=== PATIENT | male | born 1955 | race Caucasian/White ===

== ENCOUNTER 2019-04-13 13:35 | Inpatient (IN) ==
[2019-04-13 14:01] LABS: Hematocrit 43.6 % (37.5-50.1); Hemoglobin 13.5 g/dL (12.9-16.9); Mean Corpuscular Hemoglobin 29.5 pg (28.0-33.3); Mean Corpuscular Volume 95.2 fL (83.0-100.0); Mean Platelet Volume 9.5 fL (9.4-12.4); Platelet Count 235 K/mcL (140-400); Red Blood Count 4.58 M/mcL (4.19-5.50); Red Cell Distribution Width 14.4 % (11.5-14.5); White Blood Count 7.1 K/mcL (4.3-11.1)
[2019-04-13 14:13] LABS: Prothrombin Time 11.1 Seconds (9.4-12.1)
[2019-04-13 14:20] LABS: Troponin I < 0.03 ng/mL (< 0.04)
[2019-04-13 14:58] LABS: BUN/Creatinine Ratio 11 (6-26); Blood Urea Nitrogen 17 mg/dL (8-23); Calcium 9.1 mg/dL (8.6-10.3); Carbon Dioxide 29 mEq/L (23-29); Chloride 103 mEq/L (98-107); Ethanol < 10 mg/dL (Less than 10); Glucose 116 mg/dL (70-105); Osmolality,Calculated 291 (280-300); Potassium 4.4 mEq/L (3.5-5.1); Sodium 139 mEq/L (136-145); eGFR For African Americans 57 (> 60); eGFR For Non-African Americans 47 (> 60)
--- NOTE | 2019-04-13 15:41 | Emergency Department Note ---
Disposition Clinical Impression: CVA (cerebral vascular accident) Disposition: Admitted As Inpatient Condition: Good Referrals: Alexander Carrion MD [Primary Care Provider] - Time of Disposition: 15:43 General Adult HPI - General Chief complaint: ED Neuro Symptoms/Deficit Stated complaint: intermittent slurred speech Time Seen by Provider: 04/13/19 13:39 Source: patient, EMS Limitations: no limitations - History of Present Illness HPI Narrative: Is a 64-year-old gentleman who presents to the emergency department with chief complaint of strokelike symptoms. The patient reports last night he was eating dinner dropped his plate and started choking on his food. The patient's says that he became unresponsive briefly but then woke up and spit out the food out of his mouth. Patient had some difficulty talking at that time that resolved by the time he went to sleep. The patient woke up this morning and then when he went to breakfast approximately 10 AM his friend noticed that his speech was garbled and the patient was having difficulty time getting words out talking. The patient also noticed that he was drooling out of the right side of his mouth when this occurred. EMS was called and the patient was transported to the emergency department. Upon arrival to the emergency department the patient states that his symptoms were rapidly improving. The patient states that the droopiness. He has full range of motion in his extremities and states that his speech is almost back to his baseline. Pain Scale: 0 - Related Data Home Medications Medication Instructions Recorded Confirmed Aspirin 81 mg PO DAILY 04/19/17 12/21/18 Atorvastatin Calcium [Lipitor] 20 mg PO DAILY 04/19/17 12/21/18 FLUoxetine HCl [Prozac] 40 mg PO DAILY 04/19/17 12/21/18 HYDROcodone/Acet 5/325 mg [[place] 1 tab PO BID PRN 04/19/17 12/21/18 5-325 mg] Metoprolol [Lopressor] 50 mg PO BID 04/19/17 12/21/18 Pantoprazole Sodium [Protonix] 40 mg PO DAILY 12/21/18 12/21/18 hydrOXYzine HCl [Hydroxyzine HCl] 25 mg PO Q8H PRN 12/21/18 12/21/18 Allergies Allergy/AdvReac Type Severity Reaction Status Date / Time No Known Allergies Allergy Verified 02/12/19 09:50 All systems ED: reviewed and negative except as stated. Past Medical History - Past Medical History Attestation: Yes The following information was validated with the patient. Medical history: Reports: GERD, hyperlipidemia, arthritis, hypertension, other Surgical history: Reports: orthopedic, other, vasectomy, other Psychiatric history: Reports: no psych history - Social History Smoking Status: Never smoker Smokeless Tobacco Status: No Alcohol use: Reports: heavy Drug use: Reports: none Physical Exam General: Conversant and pleasant interactive and nontoxic. Head: Normocephalic/atraumatic Eyes:PERRLA, EOMI, no conjunctivitis Nares: Without d/c. Ears: No erythema or d/c noted. Oralpharnyx: P&MMM noted, Neck: Supple, no JVD or PLATE KEEPER noted. Cardovascular: regular rate and rhythm without murmur, brisk capillary refill, no peripheral edema. Lungs: Clear to ascultation bilaterally, non-labored Abd: Soft nontender, Non Distended, no guarding, no rebound. : Defered Extremities: moves all extremities equally Neuro: AOx3, patient has slight dysarthria upon speech Psych: Normal Affect Derm: No rash noted - General Limitations: no limitations General appearance: alert, in no apparent distress Course Course Narrative: Given the onset of the patient's symptoms the patient did undergo evaluation by the stroke neurologist vehicle stroke robot. CT scan showed no evidence of acute abnormalities the stroke neurologist due to the onset of symptoms and the severity of symptoms recommended that the patient was not a TPA candidate. It was recommended the patient received aspirin and also patient undergo a stroke workup in the hospital. The case was discussed with the on-call hospitalist and ultimately admitted to the hospitalist service for stroke evaluation Vital Signs Temperature 98.0 F 04/13/19 13:37 Pulse Rate 95 04/13/19 13:37 Respiratory Rate 18 04/13/19 13:37 Blood Pressure 141/85 04/13/19 13:37 O2 Sat by Pulse Oximetry 97 04/13/19 13:37 Temperature 98.0 F 04/13/19 13:37 Pulse Rate 84 04/13/19 15:26 Respiratory Rate 18 04/13/19 15:26 Blood Pressure 106/91 04/13/19 15:26 O2 Sat by Pulse Oximetry 96 04/13/19 15:26 Oxygen Delivery Oxygen Delivery Room Air Medical Decision Making - Lab Data Result diagrams: 04/13/19 13:53 04/13/19 13:53 Lab Results 04/13/19 04/13/19 04/13/19 Range/Units 13:53 13:53 13:53 WBC 7.1 (4.3-11.1) K/mcL RBC 4.58 (4.19-5.50) M/mcL Hgb 13.5 (12.9-16.9) g/dL Hct 43.6 (37.5-50.1) % MCV 95.2 (83.0-100.0) fL MCH 29.5 (28.0-33.3) pg MCHC 31.0 L (31.6-35.5) g/dL RDW 14.4 (11.5-14.5) % Plt Count 235 (140-400) K/mcL MPV 9.5 (9.4-12.4) fL PT 11.1 (9.4-12.1) Seconds INR 1.0 APTT 31.0 (26.0-36.0) Seconds Sodium 139 (136-145) mEq/L Potassium 4.4 (3.5-5.1) mEq/L Chloride 103 (98-107) mEq/L Carbon Dioxide 29 (23-29) mEq/L BUN 17 (8-23) mg/dL Creatinine 1.50 H (0.70-1.30) mg/dL Est GFR ( Amer) 57 L (> 60) Est GFR (Non-Af Amer) 47 L (> 60) BUN/Creatinine Ratio 11 (6-26) Glucose 116 H (70-105) mg/dL Calculated Osmolality 291 (280-300) Calcium 9.1 (8.6-10.3) mg/dL Troponin I < 0.03 (< 0.04) ng/mL Ethyl Alcohol < 10 (Less than 10) mg/dL
[2019-04-13 15:42] LABS: Bilirubin,Urine Negative (Negative); Blood,Urine Negative (Negative); Clarity,Urine Clear (Clear); Color,Urine Yellow (Yellow); Glucose,Urine (UA) Normal (Normal); Ketones,Urine Negative (Negative); Leukocyte Esterase,Urine Negative (Negative); Nitrite,Urine Negative (Negative); PH,Urine 6.5 pH Units (5.0-8.0); Protein,Urine Negative (Neg-Trace); Specific Gravity,Urine < 1.005 (1.010-1.025); Urobilinogen,Urine Normal (Normal)
[2019-04-13] MEDS ORDERED: Naloxone 0.4 MG/ML INJ IVP PRN (16:21)
[2019-04-13] MEDS ORDERED: *HR* HYDROcodone/Acet 5/325 mg TABLET PO PRN (16:23)
[2019-04-13] MEDS ORDERED: hydrOXYzine pamoate 25 MG CAPSULE PO PRN (16:23)
[2019-04-13] MEDS ORDERED: Aspirin 325 MG TABLET PO ONE (16:23)
--- NOTE | 2019-04-13 17:01 | Internal Med History&Physical ---
Date of Encounter: 04/13/19 Time of Encounter: 16:45 Internal Medicine - H&P: HPI Chief complaint: Slurred speech Admitted From: Emergency Dept Plans for Post Hospital Care: Home History of present illness: Mr. Lennon is a 64 year old male patient with a history of essential hypertension who presented to the ER with complaints of slurred speech. He is present at bedside, patient was eating dinner last night when he suddenly became unresponsive. She suspected that he was choking on food and asked him to spit it up. He did not respond immediately but soon after was able to spit out his foot. He did not recollect what happened then. After that he went to bed without any issues. However this morning when he woke up, he was found to have slight facial droop on the right side with drooling and his speech was also slurred. The symptoms have mostly subsided now all of his believes his speech is not back to baseline yet. He has never had these symptoms before. No recent changes to any medications. No nausea or vomiting. No bowel or bladder incontinence. No focal weakness in his extremities. He did complain of right arm pain earlier this morning which has also subsided now. Past Med Surg Social Fam HX - Past Medical History Medical history: GERD, hyperlipidemia, arthritis, hypertension, other Additional medical history: gastritis, sleep apnea. 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 left knee arthoscopy. cyst removal belt line. [facility] no stents placed. lazer to the right eye to strengthen the eye to keep the retina from tearing. EGD. COLONOSCOPY. LEFT WRIST SX. colyonoscop. cardiac catheterization - Social History Smoking Status: Never smoker Smokeless Tobacco Status: No Alcohol use: heavy Drug use: none - Additional Family History Additional family history: Family history reviewed and found to be noncontributory at this time Internal Medicine - H&P: Meds Aspirin 81 mg PO DAILY 04/19/17 [History] Atorvastatin Calcium [Lipitor] 20 mg PO DAILY 04/19/17 [History] HYDROcodone/Acet 5/325 mg [[place] 5-325 mg] 1 tab PO BID PRN 04/19/17 [History] Metoprolol [Lopressor] 50 mg PO BID 04/19/17 [History] Pantoprazole Sodium [Protonix] 40 mg PO DAILY 12/21/18 [History] hydrOXYzine HCl [Hydroxyzine HCl] 25 mg PO Q8H PRN 12/21/18 [History] FLUoxetine HCl [PROzac] 20 mg PO DAILY 04/13/19 [History] Allergy/AdvReac Type Severity Reaction Status Date / Time No Known Allergies Allergy Verified 02/12/19 09:50 All Systems PM: A 10-system review of systems was performed and is negative for pertinent findings except as documented above in the HPI. - Constitutional Constitutional: no chills, no fever(s), no night sweats - EENT Eyes: no change in vision, no discharge, no pain, no photophobia Ears: no ear discharge, no ear pain, no tinnitus Nose, mouth and throat: no dysphagia, no nasal discharge, no neck pain, no sore throat - Cardiovascular Cardiovascular ROS IM: no chest pain, no diaphoresis, no dyspnea, no lightheadedness, no palpitations, no syncope - Respiratory Respiratory: no cough, no dyspnea, no wheezing, no excessive phlegm production - Gastrointestinal Gastrointestinal: no abdominal pain, no diarrhea, no hematemesis, no hematochezia, no melena, no nausea, no vomiting - Musculoskeletal Musculoskeletal ROS IM: no numbness, no tingling - Integumentary Integumentary IM: no rash, no unusual bruising - Neurological Neurological ROS: abnormal speech, no confusion, no convulsions, no focal weakn ess, no numbness, no tingling, no tremor(s) - Hematologic/Lymphatic Hematologic/Lymphatic: no easy bruising - Constitutional Vitals: Temp Pulse Resp BP Pulse Ox 98.0 F 84 18 106/91 96 04/13/19 13:37 04/13/19 15:26 04/13/19 15:26 04/13/19 15:26 04/13/19 15:26 General appearance: Present: cooperative, A&O X 3, obese, answers questions appropriately Exam: General: Patient is alert, no acute distress, oriented x 3 Eyes: Left eye ptosis. 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 Normal breath sounds. No wheezing or crackles. Cardiovascular: Regular rate and rhythm. s1 and s2 normal No clicks, rubs, gallops, or murmurs. No pedal edema Abdomen: Abdomen is soft, nontender. Bowel sounds are present Musculoskeletal: Spontaneously moving all extremities Skin: warm, dry, intact. Neuro: Alert oriented x 3 normal cranial nerves, normal strength in all 4 extremities, no facial droop. Speech appears normal to me. Internal Med - H&P Results - Labs CBC & Chem 7: 04/13/19 13:53 04/13/19 13:53 Labs: Short CBC 04/13/19 Range/Units 13:53 WBC 7.1 (4.3-11.1) K/mcL Hgb 13.5 (12.9-16.9) g/dL Hct 43.6 (37.5-50.1) % Plt Count 235 (140-400) K/mcL BMP 04/13/19 13:53 Sodium 139 Potassium 4.4 Chloride 103 Carbon Dioxide 29 BUN 17 Creatinine 1.50 H Glucose 116 H Calcium 9.1 Cardiac Enzymes 04/13/19 Range/Units 13:53 Troponin I < 0.03 (< 0.04) ng/mL Urine 04/13/19 Range/Units 15:25 Urine Color Yellow (Yellow) Urine Clarity Clear (Clear) Urine pH 6.5 (5.0-8.0) pH Units Ur Specific [place] < 1.005 L (1.010-1.025) Urine Protein Negative (Neg-Trace) mg/dL Urine Glucose (UA) Normal (Normal) mg/dL - EKG Data -: EKG Interpreted by Myself - EKG Data EKG comments: 04/13/19 17:20 EKG shows sinus rhythm - Impressions ITS Impressions Head CT 04/13/19 13:50 IMPRESSION: No acute intracranial abnormality. Results were called by Dr. Otoniel Burnette MD to [place] Lew on 04/13/2019 at 14:08. D/ / 04/13/2019 14:09:46 Otoniel Burnette MD / earnold Interpreting Provider: Otoniel Burnette MD - Assessment and Plan (1) Transient ischemic attack (TIA) Current Visit: Yes Status: Suspected Assessment and plan: Patient with reported slurred speech at home. Symptoms have mostly resolved now. Also had a brief episode of nonresponsiveness last night. CT of the head was negative. Will continue stroke workup. Obtain MRI of the brain. CT angiogram of the head and neck. Monitor with telemetry. 2-D echocardiogram. Consider EEG to rule out seizure activity. Check A1c, lipid profile. Continue aspirin and statin. Patient apparently not compliant with aspirin at home. (2) Essential hypertension Current Visit: Yes Status: Chronic Assessment and plan: Monitor blood pressure. Resume home medications. - Time Spent With Patient Total time spent is greater than 50% in coordination of care (as documented) at patient's floor/unit and/or counseling patient:
[2019-04-13] MEDS ORDERED: Isovue-370 500 ML BOTTLE IVP ONE (17:20)
[2019-04-13] MEDS: 0.9 % Sodium Chloride 1,000 ML IVC SCH (19:30)
--- NOTE | 2019-04-13 19:42 | Event Note ---
Date of Encounter: 04/13/19 Time of Encounter: 19:39 Notified by nurse of MRI results showing small acute infarcts seen within the left posterior frontal lobe, no mass effect or midline shift, otherwise no acute intracranial abnormality, and moderate global parenchymal volume loss with mild chronic microvascular ischemic changes. Presented this morning with right-sided facial droop and slurred speech that remains resolved at this time. Called on- call neurology Dr. Almanza to discuss findings and request consult, he requested echocardiogram, carotid Dopplers, CTA of head and neck be completed and will see in the morning.
[2019-04-13] MEDS ORDERED: Perflutren Lipid Microsphere 1.3 ML in 0.9 % Sodium Chloride 8.7 ML IVP ONE (20:41)
[2019-04-14 05:14] LABS: Hematocrit 39.5 % (37.5-50.1); Hemoglobin 12.5 g/dL (12.9-16.9); Mean Corpuscular HGB Conc 31.6 g/dL (31.6-35.5); Mean Corpuscular Hemoglobin 30.2 pg (28.0-33.3); Mean Corpuscular Volume 95.4 fL (83.0-100.0); Mean Platelet Volume 9.7 fL (9.4-12.4); Platelet Count 209 K/mcL (140-400); Red Blood Count 4.14 M/mcL (4.19-5.50); Red Cell Distribution Width 14.3 % (11.5-14.5); Segmented Neutrophils % 55.1 %; White Blood Count 7.5 K/mcL (4.3-11.1)
[2019-04-14 05:15] LABS: Basophils % 0.4 %; Eosinophils # 0.2 K/mcL (0.0-0.6); Eosinophils % 2.7 %; Immature Granulocytes % 0.4 % (0-4); Lymphocytes # 2.1 K/mcL (0.6-4.6); Monocytes % 13.4 %; Neutrophils # 4.2 K/mcL (1.6-8.9)
[2019-04-14 05:34] LABS: BUN/Creatinine Ratio 18 (6-26); Blood Urea Nitrogen 20 mg/dL (8-23); Calcium 8.3 mg/dL (8.6-10.3); Carbon Dioxide 28 mEq/L (23-29); Chloride 105 mEq/L (98-107); Glucose 121 mg/dL (70-105); Osmolality,Calculated 288 (280-300); Potassium 4.1 mEq/L (3.5-5.1); Sodium 137 mEq/L (136-145); eGFR For African Americans > 60 (> 60); eGFR For Non-African Americans > 60 (> 60)
[2019-04-14 05:35] LABS: Chol/HDL Ratio 4.1 (0-4.9)
[2019-04-14] MEDS: 0.9 % Sodium Chloride 1,000 ML IVC SCH (05:43)
[2019-04-14] MEDS ORDERED: Isovue-370 500 ML BOTTLE IVP ONE (08:40)
[2019-04-14] MEDS ORDERED: Aspirin Enteric Coated 81 MG Tablet PO SCH (09:00)
[2019-04-14] MEDS ORDERED: FLUoxetine 20 MG CAPSULE PO SCH (09:00)
--- NOTE | 2019-04-14 12:05 | Neurology - Consult Note ---
Date of Encounter: 04/14/19 Time of Encounter: 12:03 Assessment and Plan (1) CVA (cerebral vascular accident) Current Visit: Yes Status: Acute Patient with multiple risk factors for CVA, including HTN, obesity, AHSAN, HDL CAD who developed lacunar infarct at the left posterior frontal lobe causing slurred speech and right facial droop, symptoms improving. This could be either small vessel etiology or thromboembolic event. Was on aspiring daily in the past but has not been compliant with therapy. Will agree with continuing Aspirin 81mg daily and continue statin therapy and risk factor modification Stroke work up completed and found left ICA 60% on CTA of neck. He is symptomatic and he could be a candidate for left carotid endarterecomty due to this finding. Would recommend vascular consulation, inpatient or outpatient in a prompt manner. Follow up in neurology in 2-3 weeks to work up for untreated AHSAN. Prognosis of this CVA should be fair since the size of stroke is small and patient already been improving. Qualifiers: CVA mechanism: unspecified Qualified Code(s): I63.9 - Cerebral infarction, unspecified (2) Left-sided carotid artery disease Current Visit: Yes Status: Acute As mentioned above, the patient has 60% of left ICA stenosis and now he developed left frontal lobe infarct which could be small vessel or thromboembolic event. No cardiac source of emboli identified. Would recommend vascular surgery consultation. Qualifiers: Carotid artery disease type: unspecified Qualified Code(s): I77.9 - Disorder of arteries and arterioles, unspecified (3) AHSAN (obstructive sleep apnea) Current Visit: Yes Status: Acute Patient has AHSAN but has not been compliant with CPAP therapy. Patient advised to follow up with neurology in 2-3 weeks and he will be proceeded with sleep study and start CPAP therapy once diagnosis of AHSAN can be established. Patient advised to lose weight with a goal of ideal BMI below 25. History of Present Illness Chief complaint: right sided facial droop and slurred speech HPI: Mr. Lennon is a 64 year old male with PMH significant HTN, AHSAN, obesity, HLD who developed acute onset of right facial droop and slurred speech. This occurred in the AM after he woke up and he was noticed by his that he had slurred speech and right facial droop therefore he was brought to ER for james luation. Initial CT of head was reported no acute intracranial abnormality. Subsequently MRI of brain without contrast showed acute lacunar infarct at the left posterior front lobe. CTA of neck and head showed 60% of left ICA, no other flow limiting arterial stenosis noted. Echocardiography showed normal LVEF of 60%, no regional wall motion abnormality, no valvular disease. Patient states that he has not been compliant with takng aspirin. He also has AHSAN and he has not been compliant with CPAP therapy. He has HTN and he admits that missed his BP meds. Currently his neurological symptoms significantly improved. He has fluent speech. is not at the bedside to confirm this. Past Med Surg Social Fam HX - Past Medical History Medical history: GERD, hyperlipidemia, arthritis, hypertension Additional medical history: gastritis, sleep apnea. 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 left knee arthoscopy. cyst removal belt line. [facility] no stents placed. lazer to the right eye to strengthen the eye to keep the retina from tearing. EGD. COLONOSCOPY. LEFT WRIST SX. colyonoscop. cardiac catheterization - Social History Smoking Status: Never smoker Smokeless Tobacco Status: No Alcohol use: heavy Drug use: none - Family History Mother Living Status: Hx Family Medical Disorders: Yes (Mother has diabetes) Father Living Status: Hx Family Neurologic Disorders: Yes ( due to cerebral aneurysm) Medications and Allergies Aspirin 81 mg PO DAILY 04/19/17 [History] Atorvastatin Calcium [Lipitor] 20 mg PO DAILY 04/19/17 [History] HYDROcodone/Acet 5/325 mg [[place] 5-325 mg] 1 tab PO BID PRN 04/19/17 [History] Metoprolol [Lopressor] 50 mg PO BID 04/19/17 [History] Pantoprazole Sodium [Protonix] 40 mg PO DAILY 12/21/18 [History] hydrOXYzine HCl [Hydroxyzine HCl] 25 mg PO Q8H PRN 12/21/18 [History] FLUoxetine HCl [PROzac] 20 mg PO DAILY 04/13/19 [History] Lisinopril [Zestril] 10 mg PO DAILY 04/13/19 [History] Allergy/AdvReac Type Severity Reaction Status Date / Time No Known Allergies Allergy Verified 02/12/19 09:50 All Systems: The remainder of the systems were reviewed and are negative - Constitutional Constitutional ROS IM: chills (no), daytime sleepiness (yes), fatigue (yes), fever(s) (no), frequent falls (no), headache(s) (no) - Nose, Mouth, Throat Nose, mouth and throat: abnormal hearing (no), dizziness (no), dysphagia (no), epistaxis (no), vertigo (no) - Cardiovascular Cardiovascular ROS IM: chest pain (no), chest pain at rest (no), chest pain with activity (no), claudication (no), diaphoresis (no) - Respiratory Respiratory IM: cough (no), dyspnea (no), hemoptysis (no) - Gastrointestinal Gastrointestinal: abdominal pain (no), belching (no), bloating (no) - Genitourinary Genitourinary ROS: difficulty urinating (no), difficulty voiding (no) - Musculoskeletal Musculoskeletal ROS IM: abnormal gait (no), arthralgias (no), back pain (no) - Neurological Neurological ROS: abnormal gait (no), abnormal hearing (no), abnormal movements (no) Physical Examination - Vital Signs Vital Signs: Initial Vital Signs Temp Pulse Resp BP Pulse Ox 98.0 F 95 18 141/85 97 04/13/19 13:37 04/13/19 13:37 04/13/19 13:37 04/13/19 13:37 04/13/19 13:37 - Constitutional General appearance: comfortable - Neurologic Detailed motor examination: full strength in all major muscle groups Motor examination - right side: 5/5: deltoids, biceps, triceps, wrist flexion, wrist extension, boomswing operator, hip flexors, tibialis Anterior, quadriceps, toe extension (EHL), plantarflexion Motor examination - left side: 5/5: deltoids, biceps, triceps, wrist flexion, wrist extension, hip flexors, boomswing operator, quadriceps, tibialis Anterior, toe extension (EHL), plantarflexion Detailed sensory examination: intact Posture: other (None) Reflex and gait examination: intact Reflexes: Biceps: 1+, Triceps: 1+, Brachioradialis: 1+, Patella: 1+, Achilles: 1+ Mental Status Examination: awake, alert, oriented to person, oriented to place, oriented to time, follows commands appropriately, answers questions appropriately, no agnosia, no aphasia, no aproxia Cranial nerve examination: PERRL (Left eye out), EOMI (Left eye out), visual curiel intact (Unable to assess due to left eye out), corneal reflexes brisk symmetrically, sensory to face intact, mastication intact, no facial asymmetry is present, no dysarthria, hearing is intact symmetrically, soft palate elevates bilaterally upon phonation, gag reflex intact, flexes SCM and trapezius muscles symmetrically with full power, tongue protrudes midline, no atrophy or facial fasiculations present Cerebellar examination: no dysmetria, performs finger to nose and heel to moeller symmetrically without ataxia, no gait ataxia, no truncal ataxia, no difficulty with rapid alternating movements Results - Laboratory Findings CBC and BMP: 04/14/19 04:58 04/14/19 04:58 Abnormal lab findings: Abnormal lab results RBC 4.14 M/mcL (4.19-5.50) L 04/14/19 04:58 Hgb 12.5 g/dL (12.9-16.9) L 04/14/19 04:58 MCHC 31.0 g/dL (31.6-35.5) L 04/13/19 13:53 1.50 mg/dL (0.70-1.30) H 04/13/19 13:53 Est GFR ( Amer) 57 (> 60) L 04/13/19 13:53 Est GFR (Non-Af Amer) 47 (> 60) L 04/13/19 13:53 Glucose 121 mg/dL (70-105) H 04/14/19 04:58 Calcium 8.3 mg/dL (8.6-10.3) L 04/14/19 04:58 Triglycerides 177 mg/dL (< 150) H 04/14/19 04:58 VLDL Cholesterol, Calc 35 mg/dL (< 31) H 04/14/19 04:58 36 mg/dL (40-59) L 04/14/19 04:58 Ur Specific Hilbert < 1.005 (1.010-1.025) L 04/13/19 15:25 - Diagnostic Findings Additional findings: CT OF THE HEAD WITHOUT CONTRAST - STROKE ALERT 04/13/2019 2:01 pm TECHNIQUE: CT of the head was performed without the administration of intravenous contrast. Dose modulation, iterative reconstruction, and/or weight based adjustment of the mA/kV was utilized to reduce the radiation dose to as low as reasonably achievable. COMPARISON: 03/22/2015 HISTORY: ORDERING SYSTEM PROVIDED HISTORY: stroke alert Acute slurred speech, initial exam. FINDINGS: BRAIN/VENTRICLES: There is no acute intracranial hemorrhage, mass effect or midline shift. No abnormal extra-axial fluid collection. The acuna-white differentiation is maintained without evidence of an acute infarct. There is no evidence of hydrocephalus. ORBITS: The visualized portion of the orbits demonstrate no acute abnormality. Remote posttraumatic or postoperative changes of the left orbit. SINUSES: The visualized paranasal sinuses and mastoid air cells demonstrate no acute abnormality. SOFT TISSUES/SKULL: No acute abnormality of the visualized skull or soft tissues. CT/CT stroke alert head wo con IMPRESSION: No acute intracranial abnormality. Results were called by Dr. Otoniel Burnette MD to Danish Lew on 04/13/2019 at 14:08. D/ / 04/13/2019 14:09:46 Otoniel Burnette MD / earnold Interpreting Provider: Otoniel Burnette MD OF THE BRAIN WITHOUT CONTRAST 04/13/2019 7:14 pm TECHNIQUE: Multiplanar multisequence MRI of the brain was performed without the administration of intravenous contrast. COMPARISON: 06/12/2012. HISTORY: ORDERING SYSTEM PROVIDED HISTORY: TIA/ Stroke Initial evaluation. FINDINGS: Motion degrades images limiting evaluation. INTRACRANIAL STRUCTURES/VENTRICLES: Small acute infarcts are seen within the posterior left frontal lobe. No mass effect or midline shift. No evidence of an acute intracranial hemorrhage. Areas of T2 FLAIR hyperintensity are seen in the periventricular and subcortical white matter, which are nonspecific, but may represent chronic microvascular ischemic change. There is prominence of the ventricles and sulci due to global parenchymal volume loss. An empty sella is noted. The normal signal voids within the major intracranial vessels appear maintained. ORBITS: The visualized portion of the orbits demonstrate no acute abnormality. 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 SINUSES: The visualized paranasal sinuses and mastoid air cells are well aerated. BONES/SOFT TISSUES: The bone marrow signal intensity appears normal. The soft tissues demonstrate no acute abnormality. MR/MR head/brain wo con IMPRESSION: 1. Small acute infarcts are seen within the left posterior frontal lobe. No mass effect or midline shift. 2. Otherwise, no acute intracranial abnormality. 3. Moderate global parenchymal volume loss with mild chronic microvascular ischemic changes. These results were sent to the [facility] ([facility]) on 04/13/2019 at 7:17 pm to be communicated to the referring/covering health care provider/office. D/ / Marquez Velasco MD / Marquez Velasco MD Interpreting Provider: Marquez Velasco MD Echo with Saline and Imaging Enhancement Agent Name: Monico Lennon Date of Study: 04/13/2019 Date: 1955 Ht: 70.0 in Medical Record#: [id number] Age: 64 Wt: 230.0 lb Gender: Male BSA: 2.22 Order #: [id number] Location: [facility] Room #: 3B32 Reading Physician: Nicolette Short MD Ordering Physician: Alex Swann CNP Screen Making Supervisor: Meghan Pinto RDCS, T Indications: Cerebrovascular Accident Impressions: LVEF 65-70%. Mild concentric LVH. Mild left ventricular diastolic dysfunction. Normal right ventricular structure and function. No significant valvular dysfunction. No evidence of pulmonary hypertension. Non-diagnostic of PFO with agitated saline contrast. CTA OF THE HEAD WITHOUT AND WITH CONTRAST; CTA OF THE NECK 04/14/2019 9:23 am TECHNIQUE: CTA of the head/brain was performed without and with the administration of intravenous contrast. Multiplanar reformatted images are provided for review. MIP images are provided for review. Dose modulation, iterative reconstruction, and/or weight based adjustment of the mA/kV was utilized to reduce the radiation dose to as low as reasonably achievable.; CTA of the neck was performed with the administration of intravenous contrast. Multiplanar reformatted images are provided for review. MIP images are provided for review. Stenosis of the internal carotid arteries measured using NASCET criteria. Dose modulation, iterative reconstruction, and/or weight based adjustment of the mA/kV was utilized to reduce the radiation dose to as low as reasonably achievable. Noncontrast CT of the head with reconstructed 2-D images are also provided for review. COMPARISON: CT head on 04/13/2019 HISTORY: ORDERING SYSTEM PROVIDED HISTORY: Possible TIA/ stroke 75 ml of [id number] FINDINGS: CT HEAD: BRAIN/VENTRICLES: No acute intracranial hemorrhage or extraaxial fluid collection. Olson-white differentiation is maintained. No evidence of mass, mass effect or midline shift. No evidence of hydrocephalus. There are nonspecific white matter hypodensities bilaterally, which are most often attributed to chronic small vessel ischemic white matter disease. Prominence of ventricles and sulci is compatible with diffuse cerebral volume loss. ORBITS: The visualized portion of the orbits demonstrate no acute abnormality. SINUSES: Mild mucosal thickening within paranasal sinuses. No evidence of air-fluid levels. The mastoid air cells are clear. SOFT TISSUES/SKULL: No acute abnormality of the visualized skull or soft tissues. CTA NECK: AORTIC ARCH/ARCH VESSELS: No significant stenosis is seen of the innominate artery or subclavian arteries. CAROTID ARTERIES: The common carotid arteries are normal in appearance without evidence of a flow limiting stenosis. There is atherosclerotic disease involving the bilateral carotid bifurcation, left greater than right. There is approximately 60% stenosis at the left carotid bifurcation involving the proximal left internal carotid artery. No flow-limiting stenosis at the right carotid bifurcation. The distal bilateral internal carotid arteries are tortuous. There is a mildly retropharyngeal course of the carotid arteries. No discrete dissection flap is identified. VERTEBRAL ARTERIES: Ranz-er-fyxhmuyt stenosis involving the bilateral vertebral arteries arising from subclavian arteries. The left vertebral artery is dominant. The right vertebral arteries terminate into branch vessel. SOFT TISSUES: The lung apices are clear. Superior mediastinum appears unremarkable. The nasopharynx, oral cavity, oropharynx, hypopharynx, and laryngeal structures are unremarkable. The parotid glands, and submandibular glands are unremarkable. The thyroid gland appears unremarkable. 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 Right optic globe appears reasonably unremarkable. Correlation with previous history is recommended. There are subcentimeter cervical lymph nodes bilaterally. These do not meet pathologic CT lymphadenopathy criteria. No evidence of supraclavicular lymphadenopathy by size criteria. No evidence of acute soft tissue findings within neck. BONES: Multilevel degenerative changes of the cervical spine. No evidence of acute osseous abnormalities. CTA HEAD: ANTERIOR CIRCULATION: Mild atherosclerotic disease involving the intracranial internal carotid arteries. No flow-limiting stenosis. The anterior cerebral and middle cerebral arteries demonstrate no focal stenosis. POSTERIOR CIRCULATION: The distal vertebral arteries are small. The basilar artery appears small. There are prominent bilateral posterior communicating artery, with near or origin of the bilateral posterior cerebral arteries. No evidence of focal occlusion or high-grade stenosis within posterior circulation. CT/CT angio neck IMPRESSION: No CT evidence of acute cortical infarct. No evidence of acute intracranial hemorrhage. Approximately 60% stenosis involving the left internal carotid artery just distal to the left carotid bifurcation. No flow-limiting stenosis involving the right carotid bifurcation. No evidence of acute cervical dissection. No high-grade stenosis or focal occlusion involving the intracranial vasculature. No evidence of aneurysm. Deformed left optic globe. Clinical correlation is recommended. D/ / 04/14/2019 09:53:14 Nick Diallo MD / bruce Interpreting Provider: Nick Diallo MD Consult Discharge Plan - Plan Referrals: Alexander Carrion MD [Primary Care Provider] - (Appt has been requested. )
[2019-04-14 12:11] VITALS: BP 138/79
[2019-04-14 13:24] LABS: Estimated Average Glucose 123 mg/dl
--- NOTE | 2019-04-14 15:31 | Discharge Summary ---
- NOTES TO OUTPATIENT PROVIDER Notes to Outpatient Provider: Patient was admitted here for possible TIA/stroke after he presented to the ER with complaints of slurred speech. His symptoms quickly resolved and CT of the head was negative. He then underwent MRI of the brain which showed small acute infarcts in the left posterior frontal lobe. Patient has been receiving aspirin and statin here. He was evaluated by neurology and also underwent CT angiogram of the head and neck. He has 60% stenosis in the left ICA which she will need follow up with vascular surgery. In the meantime patient is to continue taking aspirin and statin. He was evaluated by speech therapy here and cleared from their standpoint. Patient will be discharged home today. Date of Encounter: 04/14/19 Time of Encounter: 15:29 - Discharge Diagnosis (1) CVA (cerebral vascular accident) Priority: Primary Status: Acute Qualifiers: CVA mechanism: other Qualified Code(s): I63.89 - Other cerebral infarction (2) Essential hypertension Priority: Secondary Status: Chronic (3) Left-sided carotid artery disease Priority: Secondary Status: Acute Qualifiers: Carotid artery disease type: stenosis Qualified Code(s): I65.22 - Occlusion and stenosis of left carotid artery (4) AHSAN (obstructive sleep apnea) Priority: Secondary Status: Acute Hospital course: Mr. Lennon is a 64 year old male Patient with a history of essential hypertension and left eye blindness was admitted here for possible TIA/stroke after he presented to the ER with complaints of slurred speech. His symptoms quickly resolved and CT of the head was negative. He then underwent MRI of the brain which showed small acute infarcts in the left posterior frontal lobe. Patient has been receiving aspirin and statin here. He was evaluated by neurology and also underwent CT angiogram of the head and neck. He has 60% stenosis in the left ICA which she will need follow up with vascular surgery. In the meantime patient is to continue taking aspirin and statin. He was evalu ated by speech therapy here and cleared from their standpoint. Patient will be discharged home today. Patient did have acute kidney injury on initial presentation and he received IV fluids. This is now resolved. Discharge discussed with: patient, nurse - Time Spent with Patient Total time spent providing and/or coordinating discharge services: Time spent: Less than 30 minutes (25 min), Greater than 30 minutes - Discharge Medications Prescriptions: New Aspirin Enteric Coated [Aspirin EC] 81 mg PO DAILY #30 tablet.dr Continued Atorvastatin Calcium [Lipitor] 20 mg PO DAILY HYDROcodone/Acet 5/325 mg [[place] 5-325 mg] 1 tab PO BID PRN PRN Reason: Pain hydrOXYzine HCl [Hydroxyzine HCl] 25 mg PO Q8H PRN PRN Reason: Anxiety Pantoprazole Sodium [Protonix] 40 mg PO DAILY FLUoxetine HCl [Prozac] 20 mg PO DAILY Lisinopril [Zestril] 10 mg PO DAILY Metoprolol [Lopressor] 50 mg PO BID #60 tablet Discontinued Aspirin 81 mg PO DAILY Home Medications: Atorvastatin Calcium [Lipitor] 20 mg PO DAILY 04/19/17 [History] HYDROcodone/Acet 5/325 mg [[place] 5-325 mg] 1 tab PO BID PRN 04/19/17 [History] Pantoprazole Sodium [Protonix] 40 mg PO DAILY 12/21/18 [History] hydrOXYzine HCl [Hydroxyzine HCl] 25 mg PO Q8H PRN 12/21/18 [History] FLUoxetine HCl [Prozac] 20 mg PO DAILY 04/13/19 [History] Lisinopril [Zestril] 10 mg PO DAILY 04/13/19 [History] Aspirin Enteric Coated [Aspirin EC] 81 mg PO DAILY #30 tablet. 04/14/19 [Rx] Metoprolol [Lopressor] 50 mg PO BID #60 tablet 04/14/19 [Rx] Allergies/Adverse Reactions: Allergy/AdvReac Type Severity Reaction Status Date / Time No Known Allergies Allergy Verified 02/12/19 09:50 Date of admission: 04/13/19 15:55 Primary care physician: Alexander Carrion MD Consults: 04/13/19 19:36 Consult to Neurology [CONS] Routine Consulting Provider: Neurology [facility] Reason for Consult: Presented this morning with right sided facial droop and slurred speech that has resolved at this time. Head CT negative, MRI shows small acute infarcts within the left posterior frontal lobe with no mass effect or midline shift. Called director operations Dr Almanza who agreed to see in consult. Call Completed: Yes 04/14/19 10:48 Consult to Speech Therapy [CONS] Stat Comment: Evaluate, develop and implement POC Reason for Consult: dysphagia, aspiration risk Time Notified: 10:30 Call Completed: Yes Discharging clinician: Dari Espitia Anticipated date of discharge: 04/14/19 - Constitutional Vitals: Temp Pulse Resp BP Pulse Ox 97.6 F 75 16 138/79 95 04/14/19 12:10 04/14/19 12:10 04/14/19 12:10 04/14/19 12:10 04/14/19 12:10 General appearance: Present: cooperative, A&O X 3, obese, answers questions appropriately Exam: General: Patient is alert, no acute distress, oriented x 3 Eyes: Left eye blindness Respiratory: Good respiratory effort. Normal breath sounds. No wheezing or crackles. Cardiovascular: Regular rate and rhythm. s1 and s2 normal No clicks, rubs, gallops, or murmurs. No pedal edema Abdomen: Abdomen is soft, nontender. Bowel sounds are present Musculoskeletal: Spontaneously moving all extremities Skin: warm, dry, intact. Neuro: Alert oriented x 3 normal cranial nerves, no focal deficits - Patient Status Disposition: Home, Self-Care Condition: Good Functional capacity at discharge: independent ambulation Overall status at discharge: patient is progressing back to baseline - Discharge Instructions Instructions: Peripheral Vascular Disorders (DC) Follow Up With: Alexander Carrion MD [Primary Care Provider] - (Appt has been requested. ) John Almanza MD [Partnered Physician] - (Follow-up in 1-2 weeks regarding acute stroke) Mil Solo MD [Partnered Physician] - (Follow-up in 1-2 weeks regarding left ICA stenosis) Forms: Work/School Release - Diet and Activity Activity: increase activity as tolerated Diet: low fat, low cholesterol, low salt diet
--- NOTE | 2019-04-17 16:35 | Electrocardiograph Report ---
[place] [id number] Test Date: 2019-04-13 [facility] Department: [id number] Room: 3B32 Gender: M Painting Technician: : 1955 Requested By: Miah Lew Order Number: [id number] Reading MD: Shivani Burgess Measurements Intervals [place] Rate: 95 P: 61 ME: 129 QRS: 41 QRSD: 94 T: 60 QT: 326 QTc: 410 Interpretive Statements Sinus rhythm RSR' in V1 or V2, probably normal variant Electronically Signed On 04-17-2019 16:33:28 EDT by Shivani Burgess
== END 2019-04-14 16:30 | disposition home or self-care (01) | DRG 65 ==
LOC: EMEROOARM 13:35 → 3BNU 13:35
PROVIDERS: ADMIT Internal Medicine Nephrology; ATTEND Internal Medicine Nephrology